=== PATIENT | female | born 2000 | race Caucasian/White ===

== ENCOUNTER 2018-11-09 18:47 | Emergency (ER) | payer SELFPAY ==
[~2018-11-09] VITALS: Ht 149.9 cm; Wt 43.0 kg
[2018-11-09 18:56] VITALS: BP 104/60; PULSE 76; RESP 18; Ht 149.9 cm; Wt 43.0 kg
[2018-11-09] MEDS ORDERED: ONDANSETRON (ODT) 4 MG TAB ODT STA (21:56)
[2018-11-09] MEDS ORDERED: ACETAMINOPHEN 325 MG TAB PO ONE (22:00)
[2018-11-09] MEDS ORDERED: ONDA4TAB14 PO (22:42)
[2018-11-09] MEDS ORDERED: PYRI25TA4 PO (22:42)
[2018-11-09] MEDS ORDERED: ACET325T33 PO (22:42)
[2018-11-09] MEDS ORDERED: CEPH-443 PO (22:47)
--- NOTE | 2018-11-09 22:56 | ERD ---
ER Documentation Chief Complaint Chief Complaint ap with n/v x 3 days, possibly , painful urination HPI History of Present Illness: Patient being brought in today by significant other. Patient reporting epigastric abdominal pain and suprapubic. Associated symptoms includes nausea, vomiting for 3 days; complaint of dysuria. At home pharmacological/nonpharmacological treatment for symptoms: Denies Denies social concerns; Denies recent foreign travel ROS All systems reviewed and are negative except as per history of present illness. Medications Home Meds Active Scripts Cephalexin* (Keflex*) 500 Mg Capsule, 500 MG PO TID for bacteria in urine for 5 Days, CAP Prov:SALDIVARMICHELLE V HYDRAMATIC MECHANIC 11/09/18 Acetaminophen* (Tylenol*) 325 Mg Tablet, 2 TAB PO Q6 PRN for PAIN, #20 TAB Prov:MICHELLE SALDIVAR V HYDRAMATIC MECHANIC 11/09/18 Ondansetron (Ondansetron Odt) 4 Mg Tab.rapdis, 4 MG PO Q8 PRN for NAUSEA AND/OR VOMITING, #30 TAB Prov:MICHELLE SALDIVAR V HYDRAMATIC MECHANIC 11/09/18 Pyridoxine Hcl* (Pyridoxine Hcl*) 25 Mg Tablet, 25 MG PO BID WITH MEALS for nausea prevention, #60 TAB Prov:YARIELMICHELLE V HYDRAMATIC MECHANIC 11/09/18 Allergies Allergies: Coded Allergies: No Known Allergy (Unverified , 11/09/18) PMhx/Soc Medical and Surgical Hx: pt denies Medical Hx, pt denies Surgical Hx Hx Alcohol Use: No Hx Substance Use: No Hx Tobacco Use: No Smoking Status: Never smoker FmHx Family History: No diabetes, No coronary disease Physical Exam Vitals Vital Signs Date Temp Pulse Resp B/P (MAP) Pulse Ox O2 O2 Flow FiO2 Time Delivery Rate 11/09/18 97.8 76 18 104/60 99 18:56 (75) Physical Exam Const: No acute distress Head: Atraumatic Eyes: Normal Conjunctiva ENT: Normal External Ears, Nose and Mouth. Neck: Full range of motion. No meningismus. Resp: Clear to auscultation bilaterally Cardio: Regular rate and rhythm, no murmurs Abd: Soft, non distended. Normal bowel sounds. Tenderness to suprapubic area. No grimacing on exam, no rigidity, no guarding Skin: No petechiae or rashes Back: No midline or flank tenderness Ext: No cyanosis, or edema Neur: Awake and alert Psych: Normal Mood and Affect Results 24 hrs Laboratory Tests Test 11/09/18 22:18 11/09/18 22:22 Urine Color YELLOW Urine Clarity SLIGHTLY CLOUDY Urine pH 6.0 Urine Specific [place] 1.028 Urine Ketones NEGATIVE mg/dL Urine Nitrite NEGATIVE mg/dL Urine Bilirubin NEGATIVE mg/dL Urine Urobilinogen NEGATIVE mg/dL Urine Leukocyte Esterase TRACE Ewa/ul Urine Microscopic RBC 1 /HPF Urine Microscopic WBC 4 /HPF Urine Squamous Epithelial Cells FEW /HPF Urine Hemoglobin NEGATIVE mg/dL Urine Glucose NEGATIVE mg/dL Urine Total Protein NEGATIVE mg/dl POC Beta HCG, Qualitative POSITIVE Current Medications Medications Dose Sig/Angela Start Time Status Last (Trade) Ordered Route PRN Stop Time Admin Dose Reason Admin Ondansetron 4 mg ONCE STAT 11/09/18 DC 11/09/18 HCl (Zofran ODT 21:56 22:27 Odt) 11/09/18 21:57 650 mg ONCE ONCE 11/09/18 DC 11/09/18 Acetaminophen PO 22:00 22:27 (Tylenol 11/09/18 22:01 Tab) Procedures/MDM ED course includes a thorough examination and history. Medications: Acetaminophen for pain, Zofran for nausea Imaging: Urinalysis and-- Labs: POC urine Low suspicion for life-threatening medical emergency. Low suspicion for gastrointestinal/surgical emergency that requires hospitalization or immediate intervention. Patient denies bleeding. Reporting abdominal pain into the epigastric area only started after nausea and vomiting. Otherwise healthy patient presenting with constellation of symptoms likely representing uncomplicated hyperemesis gravidarum/leukocytes and urine as characterized by history, physical exam findings. Urine positive. Leukocyte esterase positive and urine. Due to and symptomatic dysuria, will give antibiotics. No respiratory distress, otherwise relatively well appearing and nontoxic. Patient educated on diagnoses, prescriptions, follow-up care, return precautions. Strict return precautions given for worsening condition; questions answered discharge. Disposition for discharge with followup in 2 days with PCP/clinic. Departure Diagnosis: Primary Impression: Positive test Additional Impression: Urine leukocytes Condition: Stable Patient Instructions: Hyperemesis Gravidarum (Severe Morning Sickness), : Common Questions, : More Common Questions, , New Dx Referrals: [facility] Usted se braden hecho un examen mdico de control que le indica que no est en azam condicin que requiera tratamiento urgente en el Departamento de Emergencia. Un estudio ms profundo y el tratamiento de cleaning condicin pueden esperar sin ningn riesgo hasta que usted sea atendida/o en el consultorio de cleaning mdico o azam clnica. Es responsabilidad suya arreglar azam zuleika para el seguimiento del teo. MANEJO DE CONDICIONES NO URGENTES EN EL FUTURO 1) Si usted tiene un mdico de atencin primaria: Usted debera llamar a cleaning mdico de atencin primaria antes de venir al departamento de emergencia. Despus de las horas de consultorio, cleaning doctor o cleaning asociado/a est disponible por telfono. El mdico o enfermero de anne marie en el servicio telefnico puede asesorarle por ziyad medio para atender el problema, o teo contrario se puede programar azam zuleika. 2) Si usted no tiene un mdico de atencin primaria: Llame al mdico o clnica de referencia que aparece abajo anusha las horas de consultorio para hacer azam zuleika para que le vean. CLINICAS: [facility] [phone] [address] [facility] [phone] [address] [facility] [phone] [address] [facility]. [facility] [phone] [address] [place] [id number] [phone] [facility]. [phone] [address] [facility] () Usted se braden hecho un examen mdico de control que le indica que no est en azam condicin que requiera tratamiento urgente en el Departamento de Emergencia. Un estudio ms profundo y el tratamiento de cleaning condicin pueden esperar sin ningn riesgo hasta que usted sea atendida/o en el consultorio de cleaning mdico o azam clnica. Es responsabilidad suya arreglar azam zuleika para el seguimiento del teo. MANEJO DE CONDICIONES NO URGENTES EN EL FUTURO 1) Si usted tiene un mdico de atencin primaria: Usted debera llamar a cleaning mdico de atencin primaria antes de venir al departamento de emergencia. Despus de las horas de consultorio, cleaning doctor o cleaning asociado/a est disponible por telfono. El mdico o enfermero de anne marie en el servicio telefnico puede asesorarle por ziyad medio para atender el problema, o teo contrario se puede programar azam zuleika. 2) Si usted no tiene un mdico de atencin primaria: Llame al mdico o condado institucions de referencia que aparece abajo anusha las horas de consultorio para hacer azam zuleika para que le vean. SI USTED NO PUEDE PAGAR PARA MARIO UN MEDICO puede ir a: [facility] [address] [place] [address] [facility] [address] [place] [address] [facility] [address] [place] [address] PARA [facility] [address] [place] [id number] [employer] [place] [address] [facility] [address] [place] [address] OFFICE FAX [facility] [employer] [address] [place] [address] [address] [place] [address] [place] [address] [address] [facility] [address] [facility], [address], [place] [address] [address] FIGUEROA, [facility] [address] [facility], [place] [address] [facility] [address] [facility] [place] [address] [address] [facility] [address] - [address] SHELLEY, HALLIE [address], [facility] [address] [address] SHELTON, MAGY [address] [facility]. [address], [facility] [address] [address] SOLOMON, [facility] [address] [place] [address] Additional Instructions: Thank you very much for allowing us to participate in your care. Your health and safety is our top priority at [facility]. It is important to read all discharge instructions and education provided in your discharge packet. Call your primary care doctor TOMORROW for an appointment during the next 2-4 days and bring all the information and medications prescribed. Have prescriptions filled and follow precisely the directions on the label. There is a small amount of bacteria in your urine, we are prescribing you an antibiotic called cephalexin; take this medication for the entire 5 days. The medication Pyridoxine is a vitamin containing B6; this medication to be taken every day to prevent nausea. The medication Zofran is to be taken as needed for moderate to severe nausea/vomiting. If the symptoms get worse and your provider is unavailable, return to the Emergency Department immediately. Return to the emergency room if you develop severe abdominal pain, vaginal bleeding, fever, chills. It is important to use the phone numbers listed on your discharge papers to follow-up with a FAMILY AND CONSUMER SCIENCES PROFESSOR for further workup with your . --- Thank you very much for allowing us to participate in your care. Your health and safety is our top priority at [facility]. It is important to read all discharge instructions and education provided in your discharge packet. Call your primary care doctor TOMORROW for an appointment during the next 2-4 days and bring all the information and medications prescribed. Have prescriptions filled and follow precisely the directions on the label. There is a small amount of bacteria in your urine, we are prescribing you an antibiotic called cephalexin; take this medication for the entire 5 days. The medication Pyridoxine is a vitamin containing B6; this medication to be taken every day to prevent nausea. The medication Zofran is to be taken as needed for moderate to severe nausea/vomiting. If the symptoms get worse and your provider is unavailable, return to the Emergency Department immediately. Return to the emergency room if you develop severe abdominal pain, vaginal bleeding, fever, chills. It is important to use the phone numbers listed on your discharge papers to follow-up with a FAMILY AND CONSUMER SCIENCES PROFESSOR for further workup with your . MICHELLE SALDIVAR NP Nov 09, 2018 22:56
== END 2018-11-09 23:13 | disposition home or self-care (01) ==
LOC: FTE 18:47
DX: R82.998 Other abnormal findings in urine (principal); R11.2 Nausea with vomiting, unspecified; Z32.01 Encounter for pregnancy test, result positive
CPT/HCPCS: 81001; 81025; 99283